=== PATIENT | male | born 1965 | race Two or more races ===

== ENCOUNTER 2019-09-08 10:21 | Outpatient (CLI) | payer OTHER ==
[~2019-09-08 10:21] MED LIST: METOPROLOL SUCC50 MG PO
== END 2019-09-08 10:30 | disposition home or self-care (01) ==
LOC: RAD 10:21
DX: M25.511 Pain in right shoulder (principal)

== ENCOUNTER 2022-01-30 08:40 | Outpatient (CLI) | payer OTHER | END 2022-01-30 08:49 | disposition home or self-care (01) | LOC: RX STUDY 08:40 | DX: K21.9 Gastro-esophageal reflux disease without esophagitis (principal) ==

== ENCOUNTER 2024-10-20 07:10 | Day surgery (SDC) | payer OTHER ==
[2024-10-20] MEDS ORDERED: DIPHENHYDRAMINE HCL 50 MG/ML VIAL 1ML IV ONE (10:00)
[2024-10-20] MEDS ORDERED: fentaNYL CITRATE 50 MCG/ML AMPUL IV PUSH ONE (10:00)
[2024-10-20] MEDS ORDERED: MIDAZOLAM HCL 2 MG/2 ML VIAL IV ONE (10:00)
== END 2024-10-20 11:25 | disposition home or self-care (01) ==
LOC: AMB-ENDOS 07:10
PROVIDERS: ATTEND Colon & Rectal Surgery
DX: K62.5 Hemorrhage of anus and rectum (principal)